=== PATIENT | male | born 1940 | race Caucasian/White ===

== ENCOUNTER → 2016-11-22 | Outpatient (CLI) | payer MEDICARE ==
[~2016-11-22] MED LIST: ACETAMINOPHEN650 M1 PO; BACTRIM DS TABL1 TA1 PO; BACTROBAN22 GM TP; DOCUSATE SODIU100 MG PO; FISH OIL 1,0001 CAP PO; HUMIBID-LA600 MG PO; LEVAQUIN750 MG PO; LIPITOR20 MG PO; LOC; LORTAB 5/500 TA1 TA1 PO; METOPROLOL TAR25 MG PO; MIRALAX17 GM PO; PERCOCET5/325 PO; UROXATRAL10 MG PO; VANCOMYCIN HCL1 GM IV; ZINC PO; ZOSYN 3.373.375 G/VI IV; [UNRECOGNIZED DRUG - REMARK]
--- NOTE | ~2016-11-22 | CR63 ---
[facility] A Service of [facility] & [facility] RADIOLOGY TEXT RESULTS PATIENT: JOSE J NOVOA LOCATION: [facility] : 36 UNIT #: [id number] AGE: [address]: Alena De Leon MD SEX: M ORDER DR: [id number] [facility] [address] [place], [place] [address] [id number] MR#: [id number] Acc #: [id number] NAME: JOSE J NOVOA : 1940 SEX: M STUDY DATE/TIME: 11/22/2016 12:14 UNIT: [facility] ROOM: STUDY DESCRIPTION: CR Chest 2 View Attending Physician: Alena De Leon M.D. Referring Physician: Alena De Leon M.D. Ordering Physician: Alena De Leon M.D. Primary Care Physician: Alena De Leon M.D. MEDICAL IMAGING REPORT This report is preliminary unless electronic signature is present EXAM Chest, 2 views, 11/22/16, 1214 hours. CLINICAL HISTORY Cough and congestion for 2 weeks with fever. COMPARISON 02/22/14 FINDINGS Upright PA and lateral views of the chest demonstrate normal heart size with stable tortuous descending thoracic aorta. The hilar contours are normal. The lungs are mildly hyperinflated with calcified granulomata present. There are no acute pulmonary or pleural findings. IMPRESSION Mild hyperinflation with benign calcified granulomatous changes. There are no acute cardiopulmonary findings. No appreciable change from 02/22/14. Dictated by... Evette Marie M.D. THIS IS AN ELECTRONICALLY VERIFIED REPORT Evette Marie M.D. at 11/22/2016 5:41 PM ALEXANDRA/romeo TD: 11/22/2016 15:34 JOB #: [id number] MEDICAL IMAGING REPORT Page 1 of 1 COPY
== END | disposition home or self-care (01) ==
LOC: CRAD 11:53
DX: R05 Cough (principal); R50.9 Fever, unspecified; J00 Acute nasopharyngitis [common cold]; J98.4 Other disorders of lung
CPT/HCPCS: 71020